=== PATIENT | female | born 1990 | race Two or more races ===

== ENCOUNTER 2018-12-13 13:07 | Emergency (ER) | payer MEDICAID ==
[~2018-12-13] VITALS: Ht 162.6 cm; Wt 81.6 kg
[2018-12-13 13:30] VITALS: BP 139/89
--- NOTE | 2018-12-13 13:33 | Emergency Room Report ---
History of Present Illness General Chief Complaint: Alcohol Intoxication Source: Patient Present Illness HPI 28 YO female presents to the ED c/o anxiety and tremors secondary to abrupt ETOH cessation after having binge this weekend. pt. with Hx. of ETOH abuse. Denies heart or liver conditions. Denies drug use other than THC. Denies hx of w /d Seizures, she reports only tremors. She reports multiple previous hospital admissions for ETOH W/D symptoms. She has Pt. Denies pain. She denies suspicion of . Denies fevers, chills, CP, SOB, Agitation, hallucinations or tactile disturbances. She reports intermittent sweating. Allergies: Coded Allergies: No Known Allergies (Unverified , 12/13/18) Patient History Past Medical History: see triage record Past Surgical History: none Pertinent Family History: none Last Menstrual Period: control Now: No Reviewed Nursing Documentation: PMH: Agreed; PSxH: Agreed Nursing Documentation-PMH Past Medical History: No Stated History Review of Systems All Other Systems: negative except mentioned in HPI Physical Exam Vital Signs Date Time Temp Pulse Resp B/P (MAP) Pulse Ox O2 Delivery O2 Flow Rate FiO2 12/13/18 13:19 98.2 124 24 139/89 (106) 100 Room Air Sp02 EP Interpretation: reviewed, normal General Appearance: alert, GCS 15, non-toxic, moderate distress Head: normocephalic, atraumatic Eyes: bilateral eye normal inspection, bilateral eye PERRL ENT: hearing grossly normal, normal voice Neck: full range of motion, no meningismus, no bony tend Respiratory: chest non-tender, lungs clear, normal breath sounds, no accessory muscle use, no wheezing, speaking full sentences Cardiovascular #1: regular rate, rhythm, no edema Gastrointestinal: normal bowel sounds, non tender, soft, non-distended, no guarding Musculoskeletal: back normal, gait/station normal, normal range of motion, non- tender Neurologic: alert, oriented x3, responsive, motor strength/tone normal, sensory intact, normal gait, speech normal, grossly normal Psychiatric: judgement/insight normal, memory normal, anxious - extremelty tremulous. not agitated. answers questions appropriately with sufficient detail. Skin: normal color, no rash, warm/dry, well hydrated Medical Decision Making PA Attestation Dr. Little is my supervising Physician whom patient management has been discussed with. Diagnostic Impression: Primary Impression: Withdrawal symptoms, alcohol Qualified Codes: F10.230 - Alcohol dependence with withdrawal, uncomplicated ER Course 28 YO female presents to the ED c/o anxiety and tremors secondary to abrupt ETOH cessation after having binge this weekend. pt. with Hx. of ETOH abuse. Denies heart or liver conditions. Denies drug use other than THC. Denies hx of w /d Seizures, she reports only tremors. She reports multiple previous hospital admissions for ETOH W/D symptoms. She has Pt. Denies pain. She denies suspicion of . Denies fevers, chills, CP, SOB, Agitation, hallucinations or tactile disturbances. She reports intermittent sweating. pt. is NAD, pt. is alert, no obvious signs of trauma, able to ambulate to chair and gurney. CIWA: 16 upon arrival Ddx considered but are not limited to ETOH, Trauma, Syncope, dementia, OD Vital signs: Tachycardic with rate of 127, and afebrile. H&PE are most consistent with ETOH W/D syndrome ORDERS: -CBC CMP: hypomagnesia, elevated LFT's - Serum ETOH: none - UDS: positive for benzo's and THC -UA: WNL -Urine Hcg: Negative ED INTERVENTIONS: -Observance and Supportive care for ETOH W/D--- 1mg Ativan IV x 2 - 25mg Librium PO -1 liter NS -Magnesium Sulfate 10mg IVPB - Pt. was allowed to sleep/rest. -PT. remains awake and alert x 3 --Her symptoms have subsided. pt. will be d/c with small qty of lowest dose of Librium along with AA resources. DISCHARGE: At this time pt. is stable for d/c to home. Will provide printed patient care instructions, and any necessary prescriptions. Care plan and follow up instructions have been discussed with the patient prior to discharge. Labs Test 12/13/18 13:58 12/13/18 14:45 White Blood Count 7.7 K/UL (4.8-10.8) Red Blood Count 4.64 M/UL (4.20-5.40) Hemoglobin 13.7 G/DL (12.0-16.0) Hematocrit 40.8 % (37.0-47.0) Mean Corpuscular Volume 88 FL (80-99) Mean Corpuscular Hemoglobin 29.6 PG (27.0-31.0) Mean Corpuscular Hemoglobin Concent 33.7 G/DL (32.0-36.0) Red Cell Distribution Width 12.0 % (11.6-14.8) Platelet Count 393 K/UL (150-450) Mean Platelet Volume 4.8 FL (6.5-10.1) Neutrophils (%) (Auto) 79.3 % (45.0-75.0) Lymphocytes (%) (Auto) 15.0 % (20.0-45.0) Monocytes (%) (Auto) 4.8 % (1.0-10.0) Eosinophils (%) (Auto) 0.3 % (0.0-3.0) Basophils (%) (Auto) 0.7 % (0.0-2.0) Sodium Level 135 MMOL/L (136-145) Potassium Level 4.1 MMOL/L (3.5-5.1) Chloride Level 100 MMOL/L (98-107) Carbon Dioxide Level 23 MMOL/L (21-32) Anion Gap 12 mmol/L (5-15) Blood Urea Nitrogen 10 mg/dL (7-18) Creatinine 0.8 MG/DL (0.55-1.30) Estimat Glomerular Filtration Rate > 60 mL/min (>60) Glucose Level 120 MG/DL (74-106) Calcium Level 9.5 MG/DL (8.5-10.1) Phosphorus Level 2.8 MG/DL (2.5-4.9) Magnesium Level 1.6 MG/DL (1.8-2.4) Total Bilirubin 0.7 MG/DL (0.2-1.0) Direct Bilirubin 0.2 MG/DL (0.0-0.3) Aspartate Amino Transf (AST/SGOT) 81 U/L (15-37) Alanine Aminotransferase (ALT/SGPT) 133 U/L (12-78) Alkaline Phosphatase 50 U/L (46-116) Total Protein 7.8 G/DL (6.4-8.2) Albumin 4.2 G/DL (3.4-5.0) Salicylates Level 0.6 ug/mL (2.8-20) Acetaminophen Level < 2 MCG/ML (10-30) Serum Alcohol < 3 mg/dL Urine Color Pale yellow Urine Appearance Clear Urine pH 6.5 (4.5-8.0) Urine Specific [place] 1.010 (1.005-1.035) Urine Protein Negative (NEGATIVE) Urine Glucose (UA) Negative (NEGATIVE) Urine Ketones Negative (NEGATIVE) Urine Blood Negative (NEGATIVE) Urine Nitrite Negative (NEGATIVE) Urine Bilirubin Negative (NEGATIVE) Urine Urobilinogen Normal MG/DL (0.0-1.0) Urine Leukocyte Esterase Negative (NEGATIVE) Urine HCG, Qualitative Negative (NEGATIVE) Urine Opiates Screen Negative (NEGATIVE) Urine Barbiturates Screen Negative (NEGATIVE) Phencyclidine (PCP) Screen Negative (NEGATIVE) Urine Amphetamines Screen Negative (NEGATIVE) Urine Benzodiazepines Screen Positive (NEGATIVE) Urine Cocaine Screen Negative (NEGATIVE) Urine Marijuana (THC) Screen Positive (NEGATIVE) Last Vital Signs Date Time Temp Pulse Resp B/P (MAP) Pulse Ox O2 Delivery O2 Flow Rate FiO2 12/13/18 13:19 98.2 124 24 139/89 (106) 100 Room Air Status: improved Disposition: HOME, SELF-CARE Condition: Stable Scripts Chlordiazepoxide Hcl* (LIBRIUM*) 10 Mg Capsule 10 MG ORAL THREE TIMES A DAY, #6 CAP 0 Refills Prov: Beatriz Guzman 12/13/18 Patient Instructions: Alcohol Withdrawal Additional Instructions: Take medications as directed. Do not drink alcohol. Follow up with a Primary Care Provider in 3-5 days, even if your symptoms have resolved. --Please review list of Substance Abuse/ Addiction resources. Return sooner to ED if new symptoms occur, or current symptoms become worse. - Please note that this Emergency Department Report was dictated using [employer] forensics investigator technology software, occasionally this can lead to erroneous entry secondary to interpretation by the dictation equipment. Beatriz Guzman Dec 13, 2018 13:33
[2018-12-13] MEDS ORDERED: chlordiazePOXIDE 25mg Cap ORAL ONE ×2 (13:45→15:15)
[2018-12-13] MEDS ORDERED: LORazepam Inj 2mg/ml 1ml IV ONE ×2 (14:00→14:45)
--- NOTE | 2018-12-13 14:05 | NUR ---
ED Nurse Note: pt was medicated and tolerated well
[2018-12-13 14:42] LABS: ANION GAP 12 mmol/L (5-15); BLOOD UREA NITROGEN 10 mg/dL (7-18); CALCIUM 9.5 MG/DL (8.5-10.1); CARBON DIOXIDE 23 MMOL/L (21-32); CHLORIDE 100 MMOL/L (98-107); CREATININE 0.8 MG/DL (0.55-1.30); POTASSIUM 4.1 MMOL/L (3.5-5.1); SODIUM 135 MMOL/L (136-145)
[2018-12-13 14:53] LABS: APPEARANCE,URINE CLEAR; BILIRUBIN, URINE NEGATIVE (NEGATIVE); COLOR,URINE PALE YELLOW; GLUCOSE, URINE (UA) NEGATIVE (NEGATIVE); KETONES,URINE NEGATIVE (NEGATIVE); LEUKOCYTE ESTERASE ,URINE NEGATIVE (NEGATIVE); NITRITE,URINE NEGATIVE (NEGATIVE); PH,URINE 6.5 (4.5-8.0); PROTEIN,URINE NEGATIVE (NEGATIVE); UROBILINOGEN,URINE NORMAL MG/DL (0.0-1.0)
--- NOTE | 2018-12-13 15:07 | NUR ---
ED Nurse Note: received report from RN Chelsea and assumed care, pt vss, sinus tach on quality assurance monitor body, reps even and unlabored on RA, all safety precautions in place, bed lowest position w/ siderail x2, will cont monitor. pt advised to notify staff if needed assist.
[2018-12-13 15:10] VITALS: BP_SYST 135; BP_DIAS 84; BP_DIAS 98
[2018-12-13 15:25] LABS: BASOPHILS % (AUTO) 0.7 % (0.0-2.0); EOSINOPHILS % (AUTO) 0.3 % (0.0-3.0); HEMATOCRIT 40.8 % (37.0-47.0); HEMOGLOBIN 13.7 G/DL (12.0-16.0); MEAN CORPUSCULAR VOLUME 88 FL (80-99); MONOCYTES % (AUTO) 4.8 % (1.0-10.0); NEUTROPHILS % (AUTO) 79.3 % (45.0-75.0); PLATELET COUNT 393 K/UL (150-450); RED BLOOD COUNT 4.64 M/UL (4.20-5.40); WHITE BLOOD COUNT 7.7 K/UL (4.8-10.8)
[2018-12-13 16:10] VITALS: BP 122/84
[2018-12-13 16:15] LABS: PHOSPHORUS 2.8 MG/DL (2.5-4.9)
[2018-12-13 16:16] LABS: ALANINE AMINOTRANSFERASE 133 U/L (12-78); ALBUMIN 4.2 G/DL (3.4-5.0); ALKALINE PHOSPHATASE 50 U/L (46-116); ASPARTATE AMINO TRANSFERASE 81 U/L (15-37); BILIRUBIN,DIRECT 0.2 MG/DL (0.0-0.3); BILIRUBIN,TOTAL 0.7 MG/DL (0.2-1.0)
--- NOTE | 2018-12-13 17:00 | NUR ---
ED Nurse Note: pt sleeping at this time, vss, resp even and unlabored on RA, no sx distress, all safety precautions in place, will cont monitor.
[2018-12-13] MEDS ORDERED: LIBRIUM10 MG ORAL (18:04)
[2018-12-13 18:10] VITALS: BP 134/86
[2018-12-13 19:01] VITALS: BP 138/67
--- NOTE | 2018-12-13 19:02 | NUR ---
ED Nurse Note: pt cleared to be d/c per ER provider, noted less tremors and pt reports feeling better, pt discharge and aftercare instruction provided w/ prescription, pt education done via discussion and handout, pt advised to follow up with pcp and rehab, pt states she has list of places to go and declined resources, pt advised to return to ed if changes in condition, pt vss, ambulates w/ steady gait, left w/ all belongings. pt states she is taking uber home. iv d/c and id band removed.
== END 2018-12-13 19:01 | disposition home or self-care (01) ==
LOC: EMR 13:35
DX: F10.239 Alcohol dependence with withdrawal, unspecified (principal); F12.10 Cannabis abuse, uncomplicated; F41.9 Anxiety disorder, unspecified
CPT/HCPCS: 36415; 80048; 80076; 80307; 80329; 81003; 81025; 83735; 84100; 85025; 96361; 96365; 96375; 96376; 99284

== ENCOUNTER 2019-01-17 10:15 | Emergency (ER) | payer MEDICAID ==
[~2019-01-17] VITALS: Ht 162.6 cm; Wt 83.9 kg
[~2019-01-17 10:15] MED LIST: LIBRIUM10 MG ORAL
[2019-01-17] MEDS ORDERED: LORazepam Inj 2mg/ml 1ml IV ONE ×2 (10:30→12:00)
[2019-01-17 10:47] LABS: BASOPHILS % (AUTO) 0.8 % (0.0-2.0); EOSINOPHILS % (AUTO) 1.9 % (0.0-3.0); HEMATOCRIT 37.1 % (37.0-47.0); HEMOGLOBIN 12.5 G/DL (12.0-16.0); LYMPHOCYTES % (AUTO) 27.4 % (20.0-45.0); MEAN CORPUSCULAR VOLUME 91 FL (80-99); MONOCYTES % (AUTO) 6.9 % (1.0-10.0); PLATELET COUNT 296 K/UL (150-450); RED BLOOD COUNT 4.05 M/UL (4.20-5.40); WHITE BLOOD COUNT 6.4 K/UL (4.8-10.8)
--- NOTE | 2019-01-17 10:54 | NUR ---
ED Nurse Note:pt. came from home with ETOH, A/Ox4 ambulatory, blood sent to labs, given IV fluids and ativan
[2019-01-17 10:56] VITALS: BP 127/75
[2019-01-17 10:59] LABS: ANION GAP 14 mmol/L (5-15); BLOOD UREA NITROGEN 7 mg/dL (7-18); CALCIUM 9.4 MG/DL (8.5-10.1); CARBON DIOXIDE 23 MMOL/L (21-32); CHLORIDE 103 MMOL/L (98-107); CREATININE 0.6 MG/DL (0.55-1.30); POTASSIUM 3.5 MMOL/L (3.5-5.1); SODIUM 140 MMOL/L (136-145)
--- NOTE | 2019-01-17 11:08 | NUR ---
ED Nurse Note: Pt ambulated to the restroom with steady gait.
[2019-01-17 11:13] LABS: ALANINE AMINOTRANSFERASE 144 U/L (12-78); ALBUMIN 3.5 G/DL (3.4-5.0); ALBUMIN/GLOBULIN RATIO 0.9 (1.0-2.7); ALKALINE PHOSPHATASE 53 U/L (46-116); ASPARTATE AMINO TRANSFERASE 107 U/L (15-37); BILIRUBIN,TOTAL 0.3 MG/DL (0.2-1.0)
[2019-01-17 11:37] LABS: APPEARANCE,URINE CLEAR; BILIRUBIN, URINE NEGATIVE (NEGATIVE); COLOR,URINE PALE YELLOW; GLUCOSE, URINE (UA) NEGATIVE (NEGATIVE); KETONES,URINE NEGATIVE (NEGATIVE); LEUKOCYTE ESTERASE ,URINE 1+ (NEGATIVE); NITRITE,URINE NEGATIVE (NEGATIVE); PH,URINE 7 (4.5-8.0); PROTEIN,URINE NEGATIVE (NEGATIVE); UROBILINOGEN,URINE NORMAL MG/DL (0.0-1.0)
[2019-01-17 11:55] VITALS: BP 122/71
[2019-01-17] MEDS ORDERED: LIBRIUM25 MG ORAL (12:15)
[2019-01-17 12:27] VITALS: BP 122/71
--- NOTE | 2019-01-17 12:29 | NUR ---
ER DISCHARGE NOTE: Patient is cleared to be discharged per ERMD, pt is aox4, on room air, with stable vital signs. pt was given dc and prescription instructions, pt was able to verbalize understanding, pt id band and iv site removed without complications. pt is able to ambulate with steady gait. pt took all belongings.
--- NOTE | 2019-01-17 13:14 | Emergency Room Report ---
History of Present Illness General Chief Complaint: Alcohol Intoxication Source: Patient Present Illness HPI 28-year-old female presents ED for evaluation. Walked in stating that she is undergoing alcohol withdrawals. States that her last drink was last night. States that drinks daily. States she feels very shaky. Denies nausea or vomiting. Denies any abdominal pain. Denies drug use. Denies SI or HI. Denies hearing voices. No other aggravating relieving factors. Denies any other associated symptoms Allergies: Coded Allergies: No Known Allergies (Unverified , 12/13/18) Patient History Past Medical History: none Past Surgical History: none Pertinent Family History: none Social History: Reports: alcohol use; Denies: smoking, drug use Last Menstrual Period: today Now: No : 1 Para: 0 Immunizations: UTD Reviewed Nursing Documentation: PMH: Agreed; PSxH: Agreed Nursing Documentation-PMH Past Medical History: No Stated History Review of Systems All Other Systems: negative except mentioned in HPI Physical Exam Vital Signs Date Time Temp Pulse Resp B/P (MAP) Pulse Ox O2 Delivery O2 Flow Rate FiO2 01/17/19 10:20 98.2 128 16 136/85 (102) 97 Room Air Sp02 EP Interpretation: reviewed, normal General Appearance: alert, GCS 15, non-toxic, other - tremulous Head: normocephalic, atraumatic Eyes: bilateral eye normal inspection, bilateral eye PERRL ENT: hearing grossly normal, normal pharynx, no angioedema, normal voice Neck: full range of motion, supple/symm/no masses Respiratory: chest non-tender, lungs clear, normal breath sounds, speaking full sentences Cardiovascular #1: regular rate, rhythm, no edema Cardiovascular #2: 2+ carotid (R), 2+ carotid (L), 2+ radial (R), 2+ radial (L) , 2+ dorsalis pedis (R), 2+ dorsalis pedis (L) Gastrointestinal: normal bowel sounds, non tender, soft, non-distended, no guarding, no rebound Rectal: deferred Genitourinary: normal inspection, no CVA tenderness Musculoskeletal: back normal, gait/station normal, normal range of motion, non- tender Neurologic: alert, oriented x3, responsive, motor strength/tone normal, sensory intact, speech normal Psychiatric: judgement/insight normal, memory normal, depressed affect, anxious Reflexes: 3+ bicep (R), 3+ bicep (L), 3+ tricep (R), 3+ tricep (L), 3+ knee (R) , 3+ knee (L) Skin: normal color Lymphatic: no adenopathy Medical Decision Making Diagnostic Impression: Primary Impression: Alcohol withdrawal Qualified Codes: F10.239 - Alcohol dependence with withdrawal, unspecified ER Course Hospital Course 28-year-old female presents ED complaining of shaking, stating he is in withdrawal. Chronic history of alcohol use Differential diagnoses include: Alcohol intoxication, drug abuse, opioid withdrawal, alcohol withdrawal, dehydration, drug seeking behavior Clinical course Patient placed on stretcher. On court monitor. After initial history and physical I ordered labs, IV fluids, EKG, Ativan Labs reviewed-electrolytes okay, hemoglobin/hematocrit stable, no leukocytosis, alcohol level 5, Utox + BZs EKGsinus tachycardia no acute ischemic changes interpreted by me Tachycardia resolving after IV fluids and Ativan. On reassessment patient feels better. Discussed the importance of substance abuse counseling. States she will see someone this week. We will discharge with Librium. i. I feel this is a highly complex case requiring extensive working including EKG/Rhythm strip, Xray/CT/US, Blood/urine lab work, repeat exams while in ED, and administration of strong opiates/narcotics for pain control, admission to hospital or close patient follow up. Diagnosis - alcohol withdrawal Stable and discharged to home with prescription for Librium. Followup with PMD. Return to ED if symptoms recur or worsen Labs Test 01/17/19 10:37 01/17/19 11:10 White Blood Count 6.4 K/UL (4.8-10.8) Red Blood Count 4.05 M/UL (4.20-5.40) Hemoglobin 12.5 G/DL (12.0-16.0) Hematocrit 37.1 % (37.0-47.0) Mean Corpuscular Volume 91 FL (80-99) Mean Corpuscular Hemoglobin 30.9 PG (27.0-31.0) Mean Corpuscular Hemoglobin Concent 33.7 G/DL (32.0-36.0) Red Cell Distribution Width 12.0 % (11.6-14.8) Platelet Count 296 K/UL (150-450) Mean Platelet Volume 4.9 FL (6.5-10.1) Neutrophils (%) (Auto) 63.0 % (45.0-75.0) Lymphocytes (%) (Auto) 27.4 % (20.0-45.0) Monocytes (%) (Auto) 6.9 % (1.0-10.0) Eosinophils (%) (Auto) 1.9 % (0.0-3.0) Basophils (%) (Auto) 0.8 % (0.0-2.0) Sodium Level 140 MMOL/L (136-145) Potassium Level 3.5 MMOL/L (3.5-5.1) Chloride Level 103 MMOL/L (98-107) Carbon Dioxide Level 23 MMOL/L (21-32) Anion Gap 14 mmol/L (5-15) Blood Urea Nitrogen 7 mg/dL (7-18) Creatinine 0.6 MG/DL (0.55-1.30) Estimat Glomerular Filtration Rate > 60 mL/min (>60) Glucose Level 116 MG/DL (74-106) Calcium Level 9.4 MG/DL (8.5-10.1) Total Bilirubin 0.3 MG/DL (0.2-1.0) Aspartate Amino Transf (AST/SGOT) 107 U/L (15-37) Alanine Aminotransferase (ALT/SGPT) 144 U/L (12-78) Alkaline Phosphatase 53 U/L (46-116) Total Protein 7.2 G/DL (6.4-8.2) Albumin 3.5 G/DL (3.4-5.0) Globulin 3.7 g/dL Albumin/Globulin Ratio 0.9 (1.0-2.7) Salicylates Level 0.5 ug/mL (2.8-20) Acetaminophen Level < 2 MCG/ML (10-30) Serum Alcohol 5 mg/dL Urine Color Pale yellow Urine Appearance Clear Urine pH 7 (4.5-8.0) Urine Specific [place] 1.010 (1.005-1.035) Urine Protein Negative (NEGATIVE) Urine Glucose (UA) Negative (NEGATIVE) Urine Ketones Negative (NEGATIVE) Urine Blood 3+ (NEGATIVE) Urine Nitrite Negative (NEGATIVE) Urine Bilirubin Negative (NEGATIVE) Urine Urobilinogen Normal MG/DL (0.0-1.0) Urine Leukocyte Esterase 1+ (NEGATIVE) Urine RBC 2-4 /HPF (0 - 2) Urine WBC 0-2 /HPF (0 - 2) Urine Squamous Epithelial Cells Few /LPF (NONE/OCC) Urine Bacteria Few /HPF (NONE) Urine HCG, Qualitative Negative (NEGATIVE) Urine Opiates Screen Negative (NEGATIVE) Urine Barbiturates Screen Negative (NEGATIVE) Phencyclidine (PCP) Screen Negative (NEGATIVE) Urine Amphetamines Screen Negative (NEGATIVE) Urine Benzodiazepines Screen Positive (NEGATIVE) Urine Cocaine Screen Negative (NEGATIVE) Urine Marijuana (THC) Screen Negative (NEGATIVE) EKG Diagnostic Results Rate: tachycardiac Rhythm: NSR ST Segments: no acute changes ASA given to the pt in ED: No Rhythm Strip Diag. Results EP Interpretation: yes Rhythm: NSR, no PVC's, no ectopy Last Vital Signs Date Time Temp Pulse Resp B/P (MAP) Pulse Ox O2 Delivery O2 Flow Rate FiO2 01/17/19 12:27 98.2 99 16 122/71 98 Room Air Status: improved Disposition: HOME, SELF-CARE Condition: Stable Scripts Chlordiazepoxide (Chlordiazepoxide HCl) 25 Mg Capsule 25 MG ORAL THREE TIMES A DAY, #15 CAP 0 Refills Prov: Vivek Valentine MD 01/17/19 Referrals: [facility] Patient Instructions: Alcohol Withdrawal Vivek Valentine MD Jan 17, 2019 13:14
== END 2019-01-17 12:42 | disposition home or self-care (01) ==
LOC: EMR 10:40
DX: F10.239 Alcohol dependence with withdrawal, unspecified (principal); R00.0 Tachycardia, unspecified
CPT/HCPCS: 36415; 80053; 80307; 80329; 81003; 81025; 85025; 93005; 96361; 96374; 96376; 99284

== ENCOUNTER 2019-01-25 21:55 | Emergency (ER) | payer MEDICAID ==
[~2019-01-25] VITALS: Ht 165.1 cm; Wt 86.2 kg
[~2019-01-25 21:55] MED LIST changes: +LIBRIUM25 MG ORAL
--- NOTE | 2019-01-25 22:11 | NUR ---
ED Nurse Note: pt ambulated to ed from [facility] c/o etoh x 3 days. ao4. nad.
[2019-01-25] MEDS ORDERED: KLONOPIN1 MG ORAL (22:21)
--- NOTE | 2019-01-25 22:22 | Emergency Room Report ---
History of Present Illness General Chief Complaint: Alcohol Intoxication Source: Patient Present Illness HPI Is a 28-year-old female with a history of alcohol abuse. Also history anxiety. She presents with alcohol withdrawal. She says she is shaky. She took 8 Librium this morning already and is not helping. She also drank a sixpack and she has not helping. Denies any fever chills but denies any nausea vomiting. Nothing made it better. Nothing made it worse. No suicidal thoughts homicidal thought. She has been here on multiple times for the same. Allergies: Coded Allergies: No Known Allergies (Unverified , 12/13/18) Patient History Past Medical History: see triage record, psych hx Past Surgical History: none Pertinent Family History: none Social History: Reports: alcohol use Last Menstrual Period: on period now Now: No Immunizations: other Reviewed Nursing Documentation: PMH: Agreed; PSxH: Agreed Nursing Documentation-PMH Past Medical History: No Stated History Review of Systems Eye: Denies: eye pain, blurred vision ENT: Denies: ear pain, nose congestion, throat swelling Respiratory: Denies: cough, shortness of breath Cardiovascular: Reports: palpitations; Denies: chest pain Gastrointestinal: Denies: abdominal pain, diarrhea, nausea, vomiting Musculoskeletal: Denies: back pain, joint pain Skin: Denies: rash Neurological: Denies: headache, numbness Endocrine: Denies: increased thirst, increased urine Hematologic/Lymphatic: Denies: easy bruising All Other Systems: negative except mentioned in HPI Physical Exam Vital Signs Date Time Temp Pulse Resp B/P (MAP) Pulse Ox O2 Delivery O2 Flow Rate FiO2 01/25/19 22:04 97.9 132 22 148/96 (113) 97 Room Air Vitals with tachycardia Sp02 EP Interpretation: reviewed, normal General Appearance: well appearing, no apparent distress, alert Head: normocephalic, atraumatic Eyes: bilateral eye PERRL, bilateral eye EOMI ENT: hearing grossly normal, normal pharynx Neck: full range of motion, supple, no meningismus Respiratory: chest non-tender, lungs clear, normal breath sounds Cardiovascular #1: regular rate, rhythm, no murmur, tachycardia - Heart rate 116 Gastrointestinal: normal bowel sounds, non tender, no mass, no organomegaly, no bruit, non-distended Musculoskeletal: back normal, gait/station normal, normal range of motion Psychiatric: anxious Medical Decision Making Diagnostic Impression: Primary Impression: Alcohol withdrawal Qualified Codes: F10.230 - Alcohol dependence with withdrawal, uncomplicated Additional Impression: Anxiety ER Course Patient with alcohol abuse and possible withdrawal. I suspect is more anxiety related. Will prescription for Librium. No evidence of suicidal thoughts homicidal thought. I see no evidence of ACS, PE, dissection to name a few. Rhythm Strip Diag. Results EP Interpretation: yes Rate: 106 Rhythm: NSR, no PVC's, no ectopy Last Vital Signs Date Time Temp Pulse Resp B/P (MAP) Pulse Ox O2 Delivery O2 Flow Rate FiO2 01/25/19 22:04 97.9 132 22 148/96 (113) 97 Room Air Status: improved Disposition: HOME, SELF-CARE Condition: Stable Scripts Clonazepam* (KLONOPIN*) 1 Mg Tablet 1 MG ORAL Q6H, #15 TAB 0 Refills Prov: Mathieu Ascencio MD 01/25/19 Additional Instructions: Abstain from alcohol. Go to rehab. Follow-up with your doctor in 2 to 3 days. Return if worse. Mathieu Ascencio MD Jan 25, 2019 22:22
[2019-01-25] MEDS ORDERED: LORazepam Inj 2mg/ml 1ml IM ONE (22:30)
[2019-01-25] MEDS ORDERED: chlordiazePOXIDE 25mg Cap ORAL ONE (22:30)
[2019-01-25 22:34] VITALS: BP 148/96
--- NOTE | 2019-01-25 22:38 | NUR ---
ED Nurse Note: pt medicated. tolerated well. mild anxiety level. family at bedside.
[2019-01-25 23:00] VITALS: BP 136/79
--- NOTE | 2019-01-25 23:00 | NUR ---
ER DISCHARGE NOTE: Patient is cleared to be discharged per ERMD, pt is aox4, on room air, with stable vital signs. accompanied by family member. pt was given dc and prescription instructions, pt was able to verbalize understanding, pt id band removed. pt is able to ambulate with steady gait. pt took all belongings.
== END 2019-01-25 23:00 | disposition home or self-care (01) ==
LOC: EMR 22:30
DX: F10.230 Alcohol dependence with withdrawal, uncomplicated (principal); F41.9 Anxiety disorder, unspecified
CPT/HCPCS: 96372; 99283

== ENCOUNTER 2019-04-25 11:14 | Emergency (ER) | payer MEDICAID ==
[~2019-04-25] VITALS: Ht 165.1 cm; Wt 81.6 kg
[~2019-04-25 11:14] MED LIST changes: +KLONOPIN1 MG ORAL
--- NOTE | 2019-04-25 11:25 | NUR ---
ED Nurse Note: Patient arrived to ED with complaints of tremor, nausea, and anxiety secondary to binge drinking. Pt stated her last drink was at 9pm last night. She drank 2 bottles of wine during the day yesterday and tequila last night. Pt noted to have significant tremors and very high anxiety levels. Pt has not had any hallucinations or visual disturbances. HR 127 BPM, other VSS. IV started and labs drawn, sent to lab. Pt tolerated well. Pt unable to provide urine, will try again later.
[2019-04-25] MEDS ORDERED: NKM (11:26)
[2019-04-25] MEDS ORDERED: LORazepam Inj 2mg/ml 1ml IV ONE ×2 (12:00→13:45)
[2019-04-25 12:08] LABS: BASOPHILS % (AUTO) 1.3 % (0.0-2.0); EOSINOPHILS % (AUTO) 1.7 % (0.0-3.0); HEMATOCRIT 41.5 % (37.0-47.0); HEMOGLOBIN 14.1 G/DL (12.0-16.0); LYMPHOCYTES % (AUTO) 33.3 % (20.0-45.0); MEAN CORPUSCULAR VOLUME 94 FL (80-99); MONOCYTES % (AUTO) 9.7 % (1.0-10.0); PLATELET COUNT 437 K/UL (150-450); RED BLOOD COUNT 4.44 M/UL (4.20-5.40); RED CELL DISTRIBUTION WIDTH 11.6 % (11.6-14.8); WHITE BLOOD COUNT 4.5 K/UL (4.8-10.8)
[2019-04-25 12:16] LABS: ANION GAP 11 mmol/L (5-15); BLOOD UREA NITROGEN 4 mg/dL (7-18); CALCIUM 9.3 MG/DL (8.5-10.1); CARBON DIOXIDE 26 MMOL/L (21-32); CHLORIDE 103 MMOL/L (98-107); CREATININE 0.5 MG/DL (0.55-1.30); POTASSIUM 3.6 MMOL/L (3.5-5.1); SODIUM 140 MMOL/L (136-145)
[2019-04-25 12:21] LABS: ALANINE AMINOTRANSFERASE 211 U/L (12-78); ALBUMIN 3.8 G/DL (3.4-5.0); ALKALINE PHOSPHATASE 78 U/L (46-116); ASPARTATE AMINO TRANSFERASE 181 U/L (15-37); BILIRUBIN,TOTAL 0.7 MG/DL (0.2-1.0); PHOSPHORUS 2.8 MG/DL (2.5-4.9)
[2019-04-25 13:25] VITALS: BP 166/89
--- NOTE | 2019-04-25 13:57 | NUR ---
ED Nurse Note: pt noted to have significant tremors. pt tolerating meds well. pt given further dose of ativan for tremors. vss
[2019-04-25 14:05] VITALS: BP 145/88
[2019-04-25] MEDS ORDERED: Thiamine HCl 100 MG in D5W 55 ML IVPB SCH (14:30)
--- NOTE | 2019-04-25 14:50 | NUR ---
ED Nurse Note: pt amb steady gait to brp to obtain urine sample. denies dizziness, tolerating med infusions well.
[2019-04-25] MEDS ORDERED: ATIVAN1 MG ORAL (14:52)
[2019-04-25 15:22] LABS: APPEARANCE,URINE CLEAR; BILIRUBIN, URINE NEGATIVE (NEGATIVE); GLUCOSE, URINE (UA) NEGATIVE (NEGATIVE); KETONES,URINE NEGATIVE (NEGATIVE); LEUKOCYTE ESTERASE ,URINE 1+ (NEGATIVE); NITRITE,URINE NEGATIVE (NEGATIVE); PH,URINE 6 (4.5-8.0); PROTEIN,URINE 1+ (NEGATIVE); UROBILINOGEN,URINE 1 MG/DL (0.0-1.0)
[2019-04-25 15:25] VITALS: BP 142/91
[2019-04-25 15:30] LABS: COLOR,URINE YELLOW
--- NOTE | 2019-04-25 21:09 | Emergency Room Report ---
History of Present Illness General Chief Complaint: Alcohol Intoxication Source: Patient Present Illness Allergies: Coded Allergies: No Known Allergies (Unverified , 12/13/18) Patient History Last Menstrual Period: 04/2019 Now: No Reviewed Nursing Documentation: PMH: Agreed; PSxH: Agreed Physical Exam Vital Signs Date Time Temp Pulse Resp B/P (MAP) Pulse Ox O2 Delivery O2 Flow Rate FiO2 04/25/19 11:22 98.2 132 22 116/86 (96) 98 Room Air Sp02 EP Interpretation: reviewed, normal General Appearance: normal inspection, well appearing, no apparent distress, alert, GCS 15 Head: atraumatic ENT: normal ENT inspection, hearing grossly normal, normal voice Neck: normal inspection, full range of motion, supple, no bony tend Respiratory: normal inspection, lungs clear, normal breath sounds, no respiratory distress, no retraction, no wheezing Cardiovascular #1: no edema, tachycardia Gastrointestinal: normal inspection, normal bowel sounds, non tender, soft, no guarding, no hernia Genitourinary: no CVA tenderness Musculoskeletal: normal inspection, back normal, normal range of motion Neurologic: normal inspection, alert, oriented x3, responsive, speech normal, other - tremulous Psychiatric: normal inspection, judgement/insight normal, mood/affect normal, anxious Medical Decision Making Diagnostic Impression: Primary Impression: Alcohol withdrawal Labs Test 04/25/19 11:40 04/25/19 14:40 White Blood Count 4.5 K/UL (4.8-10.8) Red Blood Count 4.44 M/UL (4.20-5.40) Hemoglobin 14.1 G/DL (12.0-16.0) Hematocrit 41.5 % (37.0-47.0) Mean Corpuscular Volume 94 FL (80-99) Mean Corpuscular Hemoglobin 31.8 PG (27.0-31.0) Mean Corpuscular Hemoglobin Concent 34.1 G/DL (32.0-36.0) Red Cell Distribution Width 11.6 % (11.6-14.8) Platelet Count 437 K/UL (150-450) Mean Platelet Volume 4.8 FL (6.5-10.1) Neutrophils (%) (Auto) 54.0 % (45.0-75.0) Lymphocytes (%) (Auto) 33.3 % (20.0-45.0) Monocytes (%) (Auto) 9.7 % (1.0-10.0) Eosinophils (%) (Auto) 1.7 % (0.0-3.0) Basophils (%) (Auto) 1.3 % (0.0-2.0) Sodium Level 140 MMOL/L (136-145) Potassium Level 3.6 MMOL/L (3.5-5.1) Chloride Level 103 MMOL/L (98-107) Carbon Dioxide Level 26 MMOL/L (21-32) Anion Gap 11 mmol/L (5-15) Blood Urea Nitrogen 4 mg/dL (7-18) Creatinine 0.5 MG/DL (0.55-1.30) Estimat Glomerular Filtration Rate > 60 mL/min (>60) Glucose Level 130 MG/DL (74-106) Calcium Level 9.3 MG/DL (8.5-10.1) Phosphorus Level 2.8 MG/DL (2.5-4.9) Magnesium Level 1.6 MG/DL (1.8-2.4) Total Bilirubin 0.7 MG/DL (0.2-1.0) Aspartate Amino Transf (AST/SGOT) 181 U/L (15-37) Alanine Aminotransferase (ALT/SGPT) 211 U/L (12-78) Alkaline Phosphatase 78 U/L (46-116) Total Protein 7.7 G/DL (6.4-8.2) Albumin 3.8 G/DL (3.4-5.0) Globulin 3.9 g/dL Albumin/Globulin Ratio 1.0 (1.0-2.7) Salicylates Level < 0.2 ug/mL (2.8-20) Acetaminophen Level < 2 MCG/ML (10-30) Serum Alcohol 34 mg/dL Urine Color Yellow Urine Appearance Clear Urine pH 6 (4.5-8.0) Urine Specific [place] 1.010 (1.005-1.035) Urine Protein 1+ (NEGATIVE) Urine Glucose (UA) Negative (NEGATIVE) Urine Ketones Negative (NEGATIVE) Urine Blood Negative (NEGATIVE) Urine Nitrite Negative (NEGATIVE) Urine Bilirubin Negative (NEGATIVE) Urine Urobilinogen 1 MG/DL (0.0-1.0) Urine Leukocyte Esterase 1+ (NEGATIVE) Urine RBC 0-2 /HPF (0 - 2) Urine WBC 2-4 /HPF (0 - 2) Urine Squamous Epithelial Cells Few /LPF (NONE/OCC) Urine Bacteria Few /HPF (NONE) Urine Opiates Screen Negative (NEGATIVE) Urine Barbiturates Screen Negative (NEGATIVE) Phencyclidine (PCP) Screen Negative (NEGATIVE) Urine Amphetamines Screen Negative (NEGATIVE) Urine Benzodiazepines Screen Positive (NEGATIVE) Urine Cocaine Screen Negative (NEGATIVE) Urine Marijuana (THC) Screen Negative (NEGATIVE) Last Vital Signs Date Time Temp Pulse Resp B/P (MAP) Pulse Ox O2 Delivery O2 Flow Rate FiO2 04/25/19 15:25 108 20 142/91 99 Room Air 04/25/19 13:25 98.9 Status: improved Disposition: HOME, SELF-CARE Condition: Stable Scripts Lorazepam* (ATIVAN*) 1 Mg Tablet 1 MG ORAL THREE TIMES A DAY, #14 TAB Prov: Mark Little MD 04/25/19 Referrals: ACCESSIPA,REFERRING (PCP) Patient Instructions: Alcohol Withdrawal Mark Little MD Apr 25, 2019 21:09
== END 2019-04-25 15:30 | disposition home or self-care (01) ==
LOC: EMR 11:45
DX: F10.239 Alcohol dependence with withdrawal, unspecified (principal)
CPT/HCPCS: 36415; 80053; 80307; 81003; 83735; 84100; 85025; 96361; 96365; 96367; 96375; 96376; G0480; G0481; Z7502; 99284; J7030

== ENCOUNTER 2019-12-19 03:46 | Emergency (ER) | payer MEDICAID ==
[~2019-12-19] VITALS: Ht 162.6 cm; Wt 90.7 kg
[~2019-12-19 03:46] MED LIST changes: +ATIVAN1 MG ORAL; +NKM
[2019-12-19] MEDS ORDERED: GABAPENTIN100 MG ORAL (04:03)
[2019-12-19 04:07] VITALS: BP 151/112
--- NOTE | 2019-12-19 04:09 | NUR ---
ED Nurse Note: PT WALKED IN TO ED C/O ALCOHOL WITHDRAWAL SYMPTOMS ONSET FRIDAY NIGHT. PT STATES TAKING GABAPENTIN BUT RAN OUT OF MED 2 DAYS AGO. PT STATES TAKING ALCOHOL AT AROUND 1800 YESTERDAY. 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
[2019-12-19] MEDS ORDERED: chlordiazePOXIDE 25mg Cap ORAL ONE (04:15)
[2019-12-19] MEDS ORDERED: LORazepam Inj 2mg/ml 1ml IM ONE (04:15)
--- NOTE | 2019-12-19 04:21 | Emergency Room Report ---
History of Present Illness General Chief Complaint: General Complaint Source: Patient Present Illness HPI This is a 29-year-old female with history of alcohol abuse. She presents with chief complaint of alcohol withdrawal. Patient states she drinks 2-3 bottles of wine a day. She stopped drinking around 6 PM. Now she getting very shaky. No suicidal thoughts homicidal thought. Similar symptom in the past. Denies any fever chills but denies any diarrhea. Nothing made it better. Nothing made it worse. Allergies: Coded Allergies: No Known Allergies (Unverified , 12/13/18) COVID-19 Screening Contact w/high risk pt: No Recent Travel to affected area: No Experienced COVID-19 symptoms?: No COVID-19 Testing performed SUPERVISING LIBRARIAN: No Patient History Past Medical History: see triage record, old chart reviewed Past Surgical History: none Pertinent Family History: none Social History: Reports: alcohol use Last Menstrual Period: 11/27 Now: No : 1 Para: 0 Immunizations: other Reviewed Nursing Documentation: PMH: Agreed; PSxH: Agreed Review of Systems Eye: Denies: eye pain, blurred vision ENT: Denies: ear pain, nose congestion, throat swelling Respiratory: Denies: cough, shortness of breath Cardiovascular: Denies: chest pain, palpitations Gastrointestinal: Denies: abdominal pain, diarrhea, nausea, vomiting Musculoskeletal: Denies: back pain, joint pain Skin: Denies: rash Neurological: Denies: headache, numbness Endocrine: Denies: increased thirst, increased urine Hematologic/Lymphatic: Denies: easy bruising All Other Systems: negative except mentioned in HPI Physical Exam Vital Signs Date Time Temp Pulse Resp B/P (MAP) Pulse Ox O2 Delivery O2 Flow Rate FiO2 12/19/19 03:58 97.3 135 20 151/112 (125) 99 Room Air 12/19/19 04:07 99 vitals with tachycardia Sp02 EP Interpretation: reviewed, normal General Appearance: well appearing, no apparent distress, alert Head: normocephalic, atraumatic Eyes: bilateral eye PERRL, bilateral eye EOMI ENT: hearing grossly normal, normal pharynx Neck: full range of motion, supple, no meningismus Respiratory: chest non-tender, lungs clear, normal breath sounds Cardiovascular #1: regular rate, rhythm, no murmur Gastrointestinal: normal bowel sounds, non tender, no mass, no organomegaly, no bruit, non-distended Musculoskeletal: back normal, normal range of motion, gait/station normal Neurologic: alert, other - tremulous Psychiatric: mood/affect normal Medical Decision Making Diagnostic Impression: Primary Impression: Alcohol withdrawal Qualified Codes: F10.230 - Alcohol dependence with withdrawal, uncomplicated ER Course Patient presents with alcohol withdrawal. Much better after Ativan. Heart rate down to 100. Will discharge home. She is currently seeing a psychiatrist now. No thoughts homicidal thought. No criteria for 5150. Last Vital Signs Date Time Temp Pulse Resp B/P (MAP) Pulse Ox O2 Delivery O2 Flow Rate FiO2 12/19/19 04:07 135 20 Room Air 99 12/19/19 04:07 97.3 151/112 99 Status: improved Disposition: HOME, SELF-CARE Condition: Stable Scripts Chlordiazepoxide (Chlordiazepoxide HCl) 25 Mg Capsule 50 MG ORAL THREE TIMES A DAY, #30 CAP 0 Refills Prov: Mathieu Ascencio MD 12/19/19 Referrals: ACCESSIPA,REFERRING (PCP) Additional Instructions: Follow-up with your doctor in 2 to 3 days. Go to rehab. Return if symptoms worsen. Mathieu Ascencio MD Dec 19, 2019 04:21
[2019-12-19] MEDS ORDERED: LIBRIUM25 MG ORAL (04:36)
[2019-12-19 04:40] VITALS: BP 141/82
--- NOTE | 2019-12-19 04:40 | NUR ---
ER DISCHARGE NOTE: Patient is cleared to be discharged per ERMD, pt is aox4, on room air, with stable vital signs. pt was given dc and prescription instructions, pt was able to verbalize understanding, pt id band removed without complications. pt is able to ambulate with steady gait. pt took all belongings.
== END 2019-12-19 04:40 | disposition home or self-care (01) ==
LOC: EMR 04:13
DX: F10.230 Alcohol dependence with withdrawal, uncomplicated (principal)
CPT/HCPCS: 96372; Z7502; 99283